=== PATIENT | female | born 1995 | race Caucasian/White ===

== ENCOUNTER → 2017-09-04 | Outpatient (CLI) | payer OTHER ==
--- NOTE | 2017-09-04 15:50 | KCIC ---
Indication: Flank pain and frequent urinary tract infections. The right kidney measures 11.0 x 4.4 x 4.0 cm and the left kidney measures 10.8 x 4.9 x 4.6 cm. There are findings suspicious for a mass in the midportion of the right kidney with internal vascularity. This measures approximately 3.5 x 2.8 x 3.3 cm. No calculi are seen. There is no hydronephrosis. The bladder is decompressed. The aorta and IVC were not visualized IMPRESSION: Findings suspicious for a mass in the midportion of the right kidney. Further evaluation with pre and postcontrast CT or MRI would be recommended for better characterization. Electronically signed by: Juan Ingram MD (09/04/2017 3:46 PM) [id number]
== END | disposition home or self-care (01) ==
LOC: KCIC US 13:11
PROVIDERS: ATTEND Nurse Practitioner Family
DX: N39.0 Urinary tract infection, site not specified (principal); Z87.440 Personal history of urinary (tract) infections
CPT/HCPCS: 76770

== ENCOUNTER → 2017-09-12 | Outpatient (CLI) | payer OTHER ==
[~2017-09-12] MED LIST: GADOBUTROL 10 MMOL/10 ML VIAL IV ONE
--- NOTE | 2017-09-12 10:35 | KCIC ---
ABDOMEN WO/W CONTRAST Clinical Indication: Abnormal renal ultrasound. Renal ultrasound for flank pain and frequent urinary tract infections. Comparison: Renal ultrasound, September 04, 2017. TECHNIQUE: Routine multiplanar multiple pulse sequence images of the abdomen are obtained before and after 8 cc Gadavist IV contrast. Findings: Kidneys are symmetric in size. There is no hydronephrosis. Kidneys enhance symmetrically. There is no renal mass. Sonographic appearance may have been due to pseudomass. Visualized liver and spleen are normal. The gallbladder, pancreas, adrenal glands, and abdominal aorta caliber are normal. Biliary tree and pancreatic duct are normal caliber. The pancreatic duct is incompletely seen. No abdominal ascites. No bowel obstruction. IMPRESSION: No renal mass. Electronically signed by: Neo Link MD (09/12/2017 10:32 AM) [id number]
== END | disposition home or self-care (01) ==
LOC: KCIC MRI 08:38
PROVIDERS: ATTEND Nurse Practitioner Family
DX: N28.89 Other specified disorders of kidney and ureter (principal); Z87.440 Personal history of urinary (tract) infections
CPT/HCPCS: 74183; A9585

== ENCOUNTER → 2018-09-11 | Outpatient (CLI) | payer OTHER ==
--- NOTE | 2018-09-11 16:11 | KCIC ---
Pelvic ultrasound Clinical Indication: Pelvic pain for one day.. . Uterus: * Size (in centimeters): 7.9 x 2.8 x 3.8 * Appearance: No evidence of mass * Endometrium: 2 mm endometrial stripe thickness. Uniform appearance. Right ovary: * Size: 3.2 cm long axis. * Blood flow: Intact * Appearance: No significant mass. Left ovary: * Size: 3.2 cm long axis. * Blood flow: Intact * Appearance: No significant mass. Free fluid: None visualized IMPRESSION: Unremarkable pelvic ultrasound. Electronically signed by: Jean-Paul Galeano MD (09/11/2018 4:07 PM) [id number]
== END | disposition home or self-care (01) ==
LOC: KCIC US 14:47
PROVIDERS: ATTEND Obstetrics & Gynecology
DX: R10.2 Pelvic and perineal pain (principal)
CPT/HCPCS: 76856